=== PATIENT | female | born 1960 | race Caucasian/White ===

== ENCOUNTER 2020-04-08 10:38 | Emergency (ER) | payer OTHER | END 2020-04-08 11:32 | disposition home or self-care (01) | LOC: JVIRT 10:38 | DX: Z20.828 Contact with and (suspected) exposure to other viral communicable diseases (principal) | CPT/HCPCS: C9803; G2012-GT; Q3014-GT; U0003 ==

== ENCOUNTER 2020-04-17 12:31 | Emergency (ER) | payer OTHER | END 2020-04-17 16:23 | disposition home or self-care (01) | LOC: JVIRT 12:31 | DX: Z20.828 Contact with and (suspected) exposure to other viral communicable diseases (principal) | CPT/HCPCS: C9803; G2012-GT; Q3014-GT; U0003 ==